=== PATIENT | male | born 1960 | race Caucasian/White ===

== ENCOUNTER 2018-03-13 17:37 | Emergency (ER) | payer MEDICARE ==
[2018-03-13 18:30] LABS: Bilirubin Negative (Negative); Blood, Urine Negative (Negative); Clarity Clear (Clear); Glucose, Urine (Dipstick) Negative (Negative); Leukocyte Negative (Negative); Nitrite Negative (Negative); Protein, Urine (Dipstick) Negative (Neg-Trace); Specific Gravity, Urine 1.015 (1.005-1.030); Urobilinogen 0.2 mg/dL (0.2-1.0); pH, Urine 6.5 (5.0-9.0)
[2018-03-13 18:33] LABS: Cocaine Metabolite Screen Not Detected (NotDetected); Methamphetamine Not Detected (NotDetected); Opiate Screen Detected (NotDetected); Phencyclidine (PCP) Not Detected (NotDetected); THC/Cannabinoid Screen Detected (NotDetected)
[2018-03-13 18:33] LABS: #Basophils 0.1 thou/uL (0.0-0.2); #Eosinphils 0.4 thou/uL (0.0-0.7); #Monocytes 0.7 thou/uL (0.11-0.59); #Neutrophils 4.7 thou/uL (1.40-6.50); %Basophils 1.1 % (0.0-1.0); %Eosinophils 4.3 % (0.0-10.0); %Lymphocytes 33.8 % (21.0-51.0); %Monocytes 7.6 % (0.0-10.0); %Neutrophils 53.2 % (42.0-75.0); Hemoglobin 14.3 g/dL (14.0-18.0); Mean Corpuscular Hemoglobin 30.3 pg (27.0-31.0); Mean Corpuscular Volume 91.7 fL (78.0-98.0); Mean Platelet Volume 6.2 fL (7.4-10.4); Platelet Count 370 thou/uL (130-400); RBC Distribution Width 11.5 % (11.5-14.5); Red Blood Cell (RBC) Count 4.74 mill/uL (4.70-6.10); White Blood Cell (WBC) Count 8.7 thou/uL (4.8-10.8)
[2018-03-13 18:34] LABS: Amphetamine Detected (NotDetected); Barbiturates Screen Not Detected (NotDetected); Benzodiazepine Screen Not Detected (NotDetected); Medtox Control Line Valid? VALID (VALID); Methadone Not Detected (NotDetected); Oxycodone Screen Detected (NotDetected); Tricyclic Screen Not Detected (NotDetected)
[2018-03-13 18:53] LABS: Troponin I Less than 0.010 ng/mL (< 0.028)
[2018-03-13 18:54] LABS: ALT (SGPT) 21 U/L (8-55); AST (SGOT) 18 U/L (5-34); Acetaminophen Less than 6.0 mcg/mL (10.0-30.0); Albumin 4.4 g/dL (3.5-5.0); Alcohol Less than 10 mg/dL (Less than 10); Alkaline Phosphatase 104 U/L (40-150); Anion Gap 13 mmol/L (10-20); BUN (Urea Nitrogen) 12 mg/dL (8.4-25.7); Bilirubin, Total 0.4 mg/dL (0.2-1.2); CK (CPK) 115 U/L (30-200); Calc. Creatinine Clearance 0 mL/min (70-130); Calcium 9.6 mg/dL (7.8-10.44); Carbon Dioxide 27 mmol/L (22-29); Chloride 96 mmol/L (98-107); Estimated GFR-MDRD 66; Globulin 2.7 g/dL (2.4-3.5); Glucose 115 mg/dL (70-105); Phosphorus 3.5 mg/dL (2.3-4.7); Protein, Total 7.1 g/dL (6.0-8.3); Salicylate Less than 8.0 mg/dL (15.0-30.0); Sodium 132 mmol/L (136-145)
[2018-03-13] MEDS ORDERED: Ondansetron HCl/PF 4 MG/2 ML Vial ONE (19:00)
[2018-03-13] MEDS ORDERED: Ketorolac Tromethamine 30 MG/ML VIAL ONE (19:44)
--- NOTE | 2018-03-13 20:08 | CT ---
NONCONTRAST CT HEAD: 03/13/18 HISTORY: Headache and confusion for two weeks. History of hypertension. Altered mental status. No comparisons available. FINDINGS: Scattered areas of diminished attenuation in the periventricular white matter which are nonspecific b ut likely attributable to chronic small vessel ischemic changes. There is no evidence of an acute cor tical infarction, hemorrhage, mass effect, or midline shift. Ventricular system is normal in size, sh ape, and position. The visualized paranasal sinuses and mastoid air cells are clear with minimal muco neetu thickening in the posterior right ethmoidal air cell. The calvarial structures are intact. IMPRESSION: No acute intracranial abnormality demonstrated. POS: H
== END 2018-03-13 19:51 | disposition home or self-care (01) ==
LOC: MADERS 17:37
DX: R51 Headache (principal); Z20.9 Contact with and (suspected) exposure to unspecified communicable disease; I10 Essential (primary) hypertension; F32.9 Major depressive disorder, single episode, unspecified; F17.210 Nicotine dependence, cigarettes, uncomplicated; Z79.899 Other long term (current) drug therapy
CPT/HCPCS: 70450; 80053; 80306; 80307; 81003; 82553; 83735; 84100; 84484; 85025; 93005; 94760; 96374; 96375; J1885; J2405

== ENCOUNTER 2018-07-05 00:50 | Emergency (ER) | payer MEDICARE ==
[2018-07-05 01:39] LABS: #Basophils 0.1 thou/uL (0.0-0.2); #Eosinphils 0.7 thou/uL (0.0-0.7); #Monocytes 1.2 thou/uL (0.11-0.59); #Neutrophils 13.7 thou/uL (1.40-6.50); %Basophils 0.7 % (0.0-1.0); %Eosinophils 3.8 % (0.0-10.0); %Lymphocytes 11.1 % (21.0-51.0); %Monocytes 6.7 % (0.0-10.0); %Neutrophils 77.7 % (42.0-75.0); Hemoglobin 12.8 g/dL (14.0-18.0); Mean Corpuscular HGB CONC 33.4 g/dL (32.0-36.0); Mean Corpuscular Hemoglobin 29.7 pg (27.0-31.0); Mean Corpuscular Volume 89.1 fL (78.0-98.0); Mean Platelet Volume 5.9 fL (7.4-10.4); Platelet Count 378 thou/uL (130-400); RBC Distribution Width 12.5 % (11.5-14.5); Red Blood Cell (RBC) Count 4.31 mill/uL (4.70-6.10); White Blood Cell (WBC) Count 17.6 thou/uL (4.8-10.8)
[2018-07-05 01:46] LABS: PTT 27.6 SEC (22.9-36.1); Prothrombin Time 12.8 SEC (12.0-14.7)
[2018-07-05 01:51] LABS: Anion Gap 14 mmol/L (10-20); BUN (Urea Nitrogen) 16 mg/dL (8.4-25.7); Calc. Creatinine Clearance 0 mL/min (70-130); Calcium 9.9 mg/dL (7.8-10.44); Carbon Dioxide 25 mmol/L (22-29); Chloride 98 mmol/L (98-107); Estimated GFR-MDRD 60; Glucose 109 mg/dL (70-105); Potassium 4.1 mmol/L (3.5-5.1); Sodium 133 mmol/L (136-145)
[2018-07-05] MEDS ORDERED: Sodium Chloride 0.9% 1,000 ML ONE (01:51)
[2018-07-05] MEDS ORDERED: Adacel (T-DAP) 0.5 ML SYRINGE ONE (01:51)
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
[2018-07-05] MEDS ORDERED: Iopamidol 370 76% 100 ML VIAL ONE (10:29)
== END 2018-07-05 04:45 | disposition home or self-care (01) ==
LOC: MADERS 00:50
DX: S22.32XA Fracture of one rib, left side, initial encounter for closed fracture (principal); S00.01XA Abrasion of scalp, initial encounter; S00.419A Abrasion of unspecified ear, initial encounter; S60.519A Abrasion of unspecified hand, initial encounter; I10 Essential (primary) hypertension; R91.8 Other nonspecific abnormal finding of lung field; F32.9 Major depressive disorder, single episode, unspecified; F17.210 Nicotine dependence, cigarettes, uncomplicated; Z79.51 Long term (current) use of inhaled steroids; Z79.899 Other long term (current) drug therapy
CPT/HCPCS: 70450; 71260; 80048; 85025; 85610; 85730; 90471; 90715; 96360; J7050; Q9967

== ENCOUNTER 2019-02-03 21:04 | Emergency (ER) | payer MEDICARE ==
[~2019-02-03 21:04] MED LIST: Iopamidol 370 76% 100 ML VIAL ONE; Sterile Water Irrigation 1,000 ML BOT ONE
[2019-02-03] MEDS ORDERED: Sodium Chloride 0.9% 1,000 ML ONE (21:49)
[2019-02-03] MEDS ORDERED: Adacel (T-DAP) 0.5 ML SYRINGE ONE (21:52)
[2019-02-03 22:11] LABS: Bilirubin Negative (Negative); Blood, Urine Negative (Negative); Clarity Clear (Clear); Glucose, Urine (Dipstick) Negative (Negative); Leukocyte Negative (Negative); Nitrite Negative (Negative); Protein, Urine (Dipstick) Negative (Neg-Trace); Urobilinogen 0.2 mg/dL (Less than 2)
[2019-02-03 22:30] LABS: #Basophils 0.1 thou/uL (0.0-0.2); #Eosinphils 0.3 thou/uL (0.0-0.7); #Lymphocytes 1.1 thou/uL (1.20-3.40); #Monocytes 0.7 thou/uL (0.11-0.59); #Neutrophils 10.7 thou/uL (1.40-6.50); %Eosinophils 2.6 % (0.0-10.0); %Lymphocytes 8.2 % (21.0-51.0); %Monocytes 5.7 % (0.0-10.0); %Neutrophils 82.5 % (42.0-75.0); Hemoglobin 11.4 g/dL (14.0-18.0); Mean Corpuscular HGB CONC 34.1 g/dL (32.0-36.0); Mean Corpuscular Hemoglobin 30.1 pg (27.0-31.0); Mean Corpuscular Volume 88.4 fL (78.0-98.0); Platelet Count 325 thou/uL (130-400); RBC Distribution Width 11.9 % (11.5-14.5); Red Blood Cell (RBC) Count 3.77 mill/uL (4.70-6.10); White Blood Cell (WBC) Count 12.9 thou/uL (4.8-10.8)
[2019-02-03 22:38] LABS: Prothrombin Time 12.9 SEC (12.0-14.7)
[2019-02-03 22:51] LABS: ALT (SGPT) 21 U/L (8-55); AST (SGOT) 21 U/L (5-34); Albumin 3.9 g/dL (3.5-5.0); Alcohol 43 mg/dL (Less than 10); Alkaline Phosphatase 80 U/L (40-150); Anion Gap 14 mmol/L (10-20); BUN (Urea Nitrogen) 15 mg/dL (8.4-25.7); Calc. Creatinine Clearance 0 mL/min (70-130); Calcium 8.8 mg/dL (7.8-10.44); Carbon Dioxide 23 mmol/L (22-29); Chloride 102 mmol/L (98-107); Estimated GFR-MDRD 53; Globulin 2.4 g/dL (2.4-3.5); Glucose 97 mg/dL (70-105); Potassium 3.8 mmol/L (3.5-5.1); Protein, Total 6.3 g/dL (6.0-8.3); Sodium 135 mmol/L (136-145)
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
[2019-02-03 22:59] LABS: Bilirubin, Total 0.2 mg/dL (0.2-1.2)
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
[2019-02-03] MEDS ORDERED: Lidocaine 1% 20 ML MDV ONE (23:40)
[2019-02-04] MEDS ORDERED: Bacitracin 1 PK ONE (00:30)
== END 2019-02-04 00:40 | disposition home or self-care (01) ==
LOC: MADERS 21:04
DX: S05.41XA Penetrating wound of orbit with or without foreign body, right eye, initial encounter (principal); S30.1XXA Contusion of abdominal wall, initial encounter; S20.219A Contusion of unspecified front wall of thorax, initial encounter; I10 Essential (primary) hypertension; F32.9 Major depressive disorder, single episode, unspecified; F17.210 Nicotine dependence, cigarettes, uncomplicated; Z79.899 Other long term (current) drug therapy; Z23 Encounter for immunization; Y04.8XXA Assault by other bodily force, initial encounter
CPT/HCPCS: 12013; 36415; 70450; 70486; 71260; 72125; 74177; 80053; 80307; 81003; 85025; 85610; 90471; 90715; 93005; 96360; 96361; A4217; J2001; J7050; Q9967

== ENCOUNTER 2019-08-14 17:53 | Emergency (ER) | payer MEDICARE ==
[~2019-08-14 17:53] MED LIST changes: +Dextrose 5 %-0.45 % NaCl 1000 ml Bag ONE; -Iopamidol 370 76% 100 ML VIAL ONE; +Sodium Chloride 0.9% 1,000 ML BAG ONE; -Sterile Water Irrigation 1,000 ML BOT ONE
[2019-08-14] MEDS ORDERED: Naloxone HCl 0.4 mg/ml Vial ONE ×2 (18:24→18:28)
[2019-08-14] MEDS ORDERED: Multivit, Adult Inj 10 ML VIAL ONE (18:39)
[2019-08-14] MEDS ORDERED: Naloxone HCl 2 mg/2 ml Syringe ONE ×2 (19:00→21:02)
--- NOTE | 2019-08-14 19:13 | RAD ---
XR Chest 1 View Portable History: Altered mental status Comparison: Outside facility radiograph 2018 Findings: Lungs are without focal confluent airspace consolidation, pneumothorax, or effusion. No acu te osseous abnormality. Right axillary or mediastinal contours are within normal limits. Dorsal column stimulator is in place. Impression: No acute intrathoracic abnormality.
[2019-08-14 19:20] LABS: #Basophils 0.1 thou/uL (0.0-0.2); #Eosinphils 0.4 thou/uL (0.0-0.7); #Lymphocytes 2.2 thou/uL (1.20-3.40); #Monocytes 1.2 thou/uL (0.11-0.59); %Basophils 0.7 % (0.0-1.0); %Eosinophils 2.9 % (0.0-10.0); %Lymphocytes 14.9 % (21.0-51.0); %Monocytes 7.9 % (0.0-10.0); %Neutrophils 73.5 % (42.0-75.0); Hemoglobin 10.8 g/dL (14.0-18.0); Mean Corpuscular HGB CONC 32.8 g/dL (32.0-36.0); Mean Corpuscular Hemoglobin 30.3 pg (27.0-31.0); Mean Corpuscular Volume 92.6 fL (78.0-98.0); Mean Platelet Volume 5.6 fL (7.4-10.4); Platelet Count 280 thou/uL (130-400); RBC Distribution Width 11.6 % (11.5-14.5); Red Blood Cell (RBC) Count 3.56 mill/uL (4.70-6.10)
[2019-08-14] MEDS ORDERED: Thiamine HCl 200 MG/2 ML VIAL ONE (19:21)
[2019-08-14 19:37] LABS: Alcohol Less than 10 mg/dL (Less than 10); CRP (Inflammatory) 7.05 mg/dL (= or < 0.5)
[2019-08-14 19:39] LABS: Acetaminophen Less than 6.0 mcg/mL (10.0-30.0); Alcohol Less than 10 mg/dL (Less than 10); CK (CPK) 635 U/L (30-200); Salicylate Less than 8.0 mg/dL (15.0-30.0)
[2019-08-14 19:42] LABS: ALT (SGPT) 24 U/L (8-55); AST (SGOT) 28 U/L (5-34); Albumin 3.7 g/dL (3.5-5.0); Alkaline Phosphatase 66 U/L (40-110); Anion Gap 15 mmol/L (10-20); BUN (Urea Nitrogen) 23 mg/dL (8.4-25.7); Bilirubin, Total 0.7 mg/dL (0.2-1.2); Calc. Creatinine Clearance 0 mL/min (70-130); Calcium 8.2 mg/dL (7.8-10.44); Carbon Dioxide 22 mmol/L (22-29); Chloride 93 mmol/L (98-107); Estimated GFR-MDRD 53; Globulin 2.2 g/dL (2.4-3.5); Glucose 106 mg/dL (70-105); Lipase 13 U/L (8-78); Potassium 3.7 mmol/L (3.5-5.1); Protein, Total 5.9 g/dL (6.0-8.3); Sodium 126 mmol/L (136-145)
[2019-08-14 20:29] LABS: Bilirubin Negative (Negative); Blood, Urine Trace (Negative); Clarity Slightly Cloudy (Clear); Glucose, Urine (Dipstick) Negative (Negative); Leukocyte Negative (Negative); Nitrite Negative (Negative); Protein, Urine (Dipstick) Negative (Neg-Trace); Urobilinogen 0.2 mg/dL (Less than 2)
[2019-08-14 20:43] LABS: Bacteria/HPF None Seen HPF (None Seen); RBC/HPF 0-3 HPF (0-3); Squamous Epithelial 0-3 HPF (0-3); WBC/HPF 0-3 HPF (0-3)
[2019-08-14 20:44] LABS: THC/Cannabinoid Screen Detected (NotDetected)
[2019-08-14 20:45] LABS: Amphetamine Detected (NotDetected); Barbiturates Screen Not Detected (NotDetected); Benzodiazepine Screen Detected (NotDetected); Cocaine Metabolite Screen Not Detected (NotDetected); Medtox Control Line Valid? VALID (VALID); Methadone Not Detected (NotDetected); Methamphetamine Detected (NotDetected); Opiate Screen Detected (NotDetected); Oxycodone Screen Not Detected (NotDetected); Phencyclidine (PCP) Not Detected (NotDetected); Tricyclic Screen Detected (NotDetected)
[2019-08-14] MEDS ORDERED: Sodium Chloride 0.9% 1,000 ML ONE (20:47)
[2019-08-14] MEDS ORDERED: Pantoprazole 40 MG VIAL ONE (21:02)
--- NOTE | 2019-08-14 21:27 | CT ---
CT Brain WO Con History: Altered mental status Comparison: CT brain January 2019 Findings: Motion artifact limits evaluation of the skull base. No acute hemorrhage or infarct. No mid line shift or mass effect. Ventricular size and extra-axial CSF spaces are relatively similar. Old right frontal white matter microangiopathic changes. Globes are intact. Mild mucosal sinus thickening of the ethmoids and right maxillary sinus. Impression: Chronic findings. No acute intracranial abnormality.
== END 2019-08-14 23:24 | disposition short-term general hospital (02) ==
LOC: MADERS 17:53
DX: T40.601A Poisoning by unspecified narcotics, accidental (unintentional), initial encounter (principal); R41.82 Altered mental status, unspecified; F10.10 Alcohol abuse, uncomplicated; E87.1 Hypo-osmolality and hyponatremia; F19.10 Other psychoactive substance abuse, uncomplicated; M62.82 Rhabdomyolysis; G89.29 Other chronic pain; I10 Essential (primary) hypertension; F32.9 Major depressive disorder, single episode, unspecified; F17.210 Nicotine dependence, cigarettes, uncomplicated; Z79.899 Other long term (current) drug therapy
CPT/HCPCS: 36415; 51702; 70450; 71045; 80053; 80306; 80307; 81003; 81015; 82550; 83605; 83690; 83880; 84443; 84484; 85025; 86140; 87040; 87086; 93005; 94760; 96365; 96366; 96368; 96375; 96376; C9113; J2310; J3411; J7042; J7050

== ENCOUNTER 2020-01-12 15:47 | Outpatient (CLI) | payer MEDICARE ==
--- NOTE | 2020-01-12 16:18 | RAD ---
XR Ribs Rt>=2 view STANDARD History: Fall. Pain Comparison: Chest radiograph July Findings: Nondisplaced right lateral fifth, sixth, seventh rib fractures. Small right extrapleural he matoma. No pneumothorax. Impression: 1. Mildly displaced right lateral fifth-seventh rib fractures with small extrapleural hematoma. No pn eumothorax. 2. Small nodule of the right lung base separate from the nipple marker. Nonemergent follow-up chest C T recommended.
== END 2020-01-12 15:48 | disposition home or self-care (01) ==
LOC: MADRAD 15:47
PROVIDERS: ATTEND Family Medicine
DX: R07.81 Pleurodynia (principal); S22.41XA Multiple fractures of ribs, right side, initial encounter for closed fracture; S27.69XA Other injury of pleura, initial encounter

== ENCOUNTER 2020-04-21 09:51 | Outpatient (CLI) | payer MEDICARE ==
--- NOTE | 2020-04-21 10:08 | RAD ---
Exam: Lumbar spine 3 views HISTORY: Chronic low back pain. No reported trauma. FINDINGS: Five lumbar type vertebra. Lumbar spine vertebral body heights are maintained with exception of L2 wh ere there is a mild chronic superior endplate deformity. Vacuum disc phenomenon at L3-L4, L4-L5 and L5-S1. The lateral projection demonstrates 4.6 mm of retrolisthesis of L4 upon L5. On the AP projection, mild leftward curvature of the lumbar spine centered at the L3 level. Visualized sacrum and bony pelvis is intact. Dorsal column stimulator is incompletely evaluated. IMPRESSION: Multilevel degenerative changes of lumbar spine. Transcribed Date/Time: 04/21/2020 10:46 AM
== END 2020-04-21 09:52 | disposition home or self-care (01) ==
LOC: MADRAD 09:51
PROVIDERS: ATTEND Family Medicine
DX: M54.5 Low back pain (principal); G89.29 Other chronic pain; M47.816 Spondylosis without myelopathy or radiculopathy, lumbar region
CPT/HCPCS: 72100

== ENCOUNTER 2020-04-28 15:08 | Outpatient (CLI) | payer MEDICARE ==
[~2020-04-28 15:08] MED LIST changes: -Dextrose 5 %-0.45 % NaCl 1000 ml Bag ONE; +Iopamidol 370 76% 100 ML VIAL ONE; -Sodium Chloride 0.9% 1,000 ML BAG ONE
--- NOTE | 2020-04-28 16:30 | CT ---
CT OF THE CHEST WITH IV CONTRAST INDICATION: Follow-up right upper lobe pulmonary nodule COMPARISON: CT of the chest, abdomen and pelvis dated February 03, 2019 FINDINGS: CHEST: Lungs: There is scattered centrilobular emphysema. There is a 5.5 mm pulmonary nodule within the post erior medial right lower lobe. This appears stable to comparison CT of the thorax dated 06/25/2018. No additional pulmonary nodule is evident. Pleural space: No effusion. Mediastinum: There is a small pericardial effusion, increased in prominence from prior exam. There co ronary artery and thoracic aortic calcifications. There are mildly prominent AP window lymph nodes measuring up to 9.6 mm. There is a subcarinal lymph node measuring 1.4 cm. Upper abdomen:There are partially visualized bilateral renal cysts. No definite acute abnormality is evident. Osseous structures: There are healing ununited right lateral right third through eighth rib fractures . There is a dorsal column stimulator in place. Soft tissues:Normal. IMPRESSION: 1. Stable right lower lobe pulmonary nodule. Follow-up noncontrast CT examination in June 2020 is recommended to document stability. 2. Enlarging small pericardial effusion is nonspecific. 3. Mildly prominent AP window and subcarinal lymphadenopathy. Follow-up CT in 6-8 weeks with IV contr ast may be helpful document stability or resolution. 4. Scattered emphysema. 5. Interval development of healing ununited right lateral third through eighth rib fractures.
== END 2020-04-28 15:09 | disposition home or self-care (01) ==
LOC: MADLAB 15:08
PROVIDERS: ATTEND Family Medicine
DX: R91.1 Solitary pulmonary nodule (principal); I31.3 Pericardial effusion (noninflammatory); R59.0 Localized enlarged lymph nodes; J43.2 Centrilobular emphysema; S22.41XD Multiple fractures of ribs, right side, subsequent encounter for fracture with routine healing
CPT/HCPCS: 71260; 82565; Q9967

== ENCOUNTER 2021-09-12 09:24 | Emergency (ER) | payer MEDICARE ==
[2021-09-12 10:24] LABS: #Basophils 0.1 thou/uL (0.0-0.2); #Eosinphils 0.4 thou/uL (0.0-0.7); #Lymphocytes 1.5 thou/uL (1.20-3.40); #Monocytes 0.8 thou/uL (0.11-0.59); #Neutrophils 5.7 thou/uL (1.40-6.50); %Basophils 0.9 % (0.0-1.0); %Eosinophils 4.7 % (0.0-10.0); %Lymphocytes 17.5 % (21.0-51.0); %Monocytes 9.1 % (0.0-10.0); %Neutrophils 67.8 % (42.0-75.0); Hemoglobin 14.5 g/dL (14.0-18.0); Mean Corpuscular HGB CONC 34.3 g/dL (32.0-36.0); Mean Corpuscular Hemoglobin 32.9 pg (27.0-31.0); Mean Corpuscular Volume 95.9 fL (78.0-98.0); Mean Platelet Volume 7.4 fL (7.4-10.4); Platelet Count 300 thou/uL (130-400); RBC Distribution Width 12.1 % (11.5-14.5); Red Blood Cell (RBC) Count 4.39 mill/uL (4.70-6.10); White Blood Cell (WBC) Count 8.4 thou/uL (4.8-10.8)
[2021-09-12 10:46] LABS: ALT (SGPT) 39 U/L (8-55); AST (SGOT) 27 U/L (5-34); Albumin 4.2 g/dL (3.4-4.8); Alkaline Phosphatase 78 U/L (40-110); Anion Gap 16 mmol/L (10-20); BUN (Urea Nitrogen) 11 mg/dL (8.4-25.7); Bilirubin, Total 0.4 mg/dL (0.2-1.2); Calc. Creatinine Clearance 0 mL/min (70-130); Calcium 9.3 mg/dL (7.8-10.44); Carbon Dioxide 25 mmol/L (23-31); Chloride 100 mmol/L (98-107); Globulin 2.3 g/dL (2.4-3.5); Glucose 119 mg/dL (80-115); Potassium 3.4 mmol/L (3.5-5.1); Protein, Total 6.5 g/dL (5.8-8.1); Sodium 138 mmol/L (136-145)
[2021-09-12] MEDS ORDERED: Boostrix 0.5 ML (Tdap) VIAL ONE (10:47)
[2021-09-12] MEDS ORDERED: Iopamidol 370 76% 100 ML VIAL ONE (13:34)
== END 2021-09-12 12:15 | disposition home or self-care (01) ==
LOC: MADERS 09:24
DX: S20.211A Contusion of right front wall of thorax, initial encounter (principal); S50.811A Abrasion of right forearm, initial encounter; I10 Essential (primary) hypertension; F17.210 Nicotine dependence, cigarettes, uncomplicated; Z79.899 Other long term (current) drug therapy; W18.30XA Fall on same level, unspecified, initial encounter; W22.8XXA Striking against or struck by other objects, initial encounter
CPT/HCPCS: 71260; 74177; 80053; 85025; 90471; 90715; Q9967

== ENCOUNTER 2021-09-19 11:21 | Outpatient (CLI) | payer MEDICARE | END 2021-09-19 11:22 | disposition home or self-care (01) | LOC: MADLAB 11:21 | PROVIDERS: ATTEND Family Medicine | DX: S20.212A Contusion of left front wall of thorax, initial encounter (principal) ==